=== PATIENT | male | born 1950 | race Caucasian/White ===

== ENCOUNTER 2019-01-20 09:37 | Emergency (ER) | payer MEDICARE ==
--- NOTE | 2019-01-20 10:00 | Emergency Department Record ---
History of Present Illness - General Chief complaint: Lower Extremity Pain Stated complaint: LOWER RIGHT LEG PAIN Time Seen by Provider: 01/20/19 09:50 Source: Patient, RN notes reviewed Mode of Arrival: Ambulatory - History of Present Illness Initial comments: right anterior lower leg pain and redness and no trauma. pulses are good and the skin is tender to touch. Onset/Timin -: Week(s) Location: Right, Lower Leg History of Same: No Radiation: None Severity scale (1-10): 1 Quality: Other Consistency: Intermittent Improves with: Immobilization Worsens with: Exertion, Walking, Weight bearing Associated Symptoms: Denies other symptoms - Related Data Home Medications Medication Instructions Recorded Confirmed Last Taken Simvastatin 40 mg PO DAILY 01/20/19 01/20/19 Unknown Previous Rx's Medication Instructions Recorded Amoxicillin/Potassium Clav 1 tab PO BID #20 tab 01/20/19 [Augmentin 875-125 Tablet] Allergies Allergy/AdvReac Type Severity Reaction Status Date / Time No Known Drug Allergies Allergy Verified 01/20/19 09:45 Travel Screening - Travel/Exposure Within Last 30 Days Have you traveled within the last 30 days?: No Review of Systems Reviewed: No additional complaints except as noted below Constitutional: Reports: As per HPI. Denies: Chills, Fever, Malaise, Night sweats, Weakness, Weight change Eyes: Reports: As per HPI. Denies: Eye discharge, Eye pain, Photophobia, Vision change ENT: Reports: As per HPI. Denies: Congestion, Dental pain, Ear pain, Epistaxis, Hearing loss, Throat pain Respiratory: Reports: As per HPI. Denies: Cough, Dyspnea, Hemoptysis, Stridor, Wheezes Cardiovascular: Reports: As per HPI. Denies: Arrhythmia, Chest pain, Dyspnea on exertion, Edema, Murmurs, Orthopnea, Palpitations, Paroxysmal nocturnal dyspnea, Rheumatic Fever, Syncope Endocrine: Reports: As per HPI. Denies: Fatigue, Heat or cold intolerance, Polydipsia, Polyuria Gastrointestinal: Reports: As per HPI. Denies: Abdominal pain, Constipation, Diarrhea, Hematemesis, Hematochezia, Melena, Nausea, Vomiting Genitourinary: Reports: As per HPI. Denies: Dysuria, Frequency, Hematuria, Incontinence, Retention, Testicular pain, Testicular mass, Urgency Musculoskeletal: Reports: As per HPI. Denies: Arthralgia, Back pain, Gout, Joint swelling, Myalgia, Neck pain Skin: Reports: As per HPI, Rash. Denies: Bruising, Change in color, Change in hair/nails, Lesions, Pruritus Neurological: Reports: As per HPI. Denies: Abnormal gait, Confusion, Headache, Numbness, Paresthesias, Seizure, Tingling, Tremors, Vertigo, Weakness Psychiatric: Reports: As per HPI. Denies: Anxiety, Auditory hallucinations, Depression, Homicidal thoughts, Suicidal thoughts, Visual hallucinations Hematological/Lymphatic: Reports: As per HPI. Denies: Anemia, Blood Clots, Easy bleeding, Easy bruising, Swollen glands Past Medical History - SOCIAL HISTORY Smoking Status: Never smoker Alcohol Use: None Drug Use: None - RESPIRATORY Hx Respiratory Disorders: No - CARDIOVASCULAR Hx Cardio Disorders: Yes Hx Hypertension: Yes - NEURO Hx Neuro Disorders: No - GI Hx GI Disorders: No - Hx Genitourinary Disorders: No - ENDOCRINE Hx Endocrine Disorders: No - MUSCULOSKELETAL Hx Musculoskeletal Disorders: No - PSYCH Hx Psych Problems: No - HEMATOLOGY/ONCOLOGY Hx Hematology/Oncology Disorders: No Family Medical History Any Significant Family History?: No Physical Exam - General General Appearance: Alert, Oriented x3, Cooperative, No acute distress - Head Head exam: Normal inspection - Eye Eye exam: Normal appearance, PERRL Pupils: Normal accommodation - ENT ENT exam: Normal exam, Mucous membranes moist, Normal external ear exam, Normal orophraynx, TM's normal bilaterally Ear exam: Normal external inspection. negative: External canal tenderness Nasal Exam: Normal inspection. negative: Discharge, Sinus tenderness Mouth exam: Normal external inspection, Tongue normal Teeth exam: Normal inspection. negative: Dental caries Throat exam: Normal inspection. negative: Tonsillar erythema, Tonsillar exudate - Neck Neck exam: Normal inspection, Full ROM. negative: Tenderness - Respiratory Respiratory exam: Normal lung sounds bilaterally. negative: Respiratory distress - Cardiovascular Cardiovascular Exam: Regular rate, Normal rhythm, Normal heart sounds - GI/Abdominal GI/Abdominal exam: Soft, Normal bowel sounds. negative: Tenderness - Rectal Rectal exam: Deferred - exam: Deferred - Extremities Extremities exam: Normal inspection, Full ROM, Normal capillary refill. negative: Tenderness - Back Back exam: Reports: Normal inspection, Full ROM. Denies: Muscle spasm, Rash noted, Tenderness - Neurological Neurological exam: Alert, Normal gait, Oriented X3, Reflexes normal - Psychiatric Psychiatric exam: Normal affect, Normal mood - Skin Skin exam: Dry, Intact, Normal color, Warm Course Vital Signs 01/20/19 09:39 Temperature 97.9 F Pulse Rate 64 Respiratory 20 Rate Blood Pressure 159/103 Pulse Ox 98 Medical Decision Making - Lab Data Result diagrams: 01/20/19 10:25 Disposition Clinical Impression: Cellulitis of leg, right, Elevated uric acid in blood Disposition: Home, Self-Care Condition: (1) Good Instructions: Cellulitis (ED) Additional Instructions: follow up with family uric acid slightly elevated use motrin 400 mg three times a day Prescriptions: Amoxicillin/Potassium Clav [Augmentin 875-125 Tablet] 1 tab PO BID #20 tab Forms: Patient Portal Access Time of Disposition: 12:51 Quality - Quality Measures Quality Measures: N/A - Blood Pressure Screening Does Patient Have Any of the Following: No Blood Pressure Classification: Hypertensive Reading Systolic Measurement: 159 Diastolic Measurement: 103 Screening for High Blood Pressure: < Pre-Hypertensive BP, F/U Documented > [G8950] Pre-Hypertensive Follow-up Interventions: Referral to alternative/primary care provider.
[2019-01-20 10:31] LABS: ABSOLUTE NEUTROPHIL COUNT 3.09; EOS % 6.1 % (0-6); GRAN % 60.3 % (47-80); HEMATOCRIT 41.3 % (42.0-52.0); HEMOGLOBIN 13.3 gm/dl (14.0-18.0); LYMPH % 24.8 % (16-45); MEAN CELL VOLUME 91.8 fl (81-97); MEAN CORPUSCULAR HGB CONC 32.2 g/dl (32-36); MEAN PLATELET VOLUME 10.2 fl (7.4-10.4); MONO % 7.8 % (0-9); PLATELET COUNT 250 K/uL (130-400); RED CELL DISTRIBUTION WIDTH 13.3 % (11.5-14.5); WHITE BLOOD COUNT W/O DIFF 5.1 K/uL (4.2-12.2)
[2019-01-20 10:33] LABS: MEAN CORPUSCULAR HEMOGLOBIN 29.5 pg (27-33)
[2019-01-20 10:53] LABS: C-REACTIVE PROTEIN 0.2 mg/dL (<0.5)
--- NOTE | 2019-01-20 12:27 | ULTRASOUND REPORT ---
EXAMINATION: Right Lower Extremity Venous Duplex Doppler Ultrasound EXAM DATE: 01/20/2019 11:46 AM TECHNIQUE: Real-time B-mode imaging with and without compression was used to evaluate the right lowe r extremity for deep venous thrombosis (DVT). Duplex Doppler with color and spectral Doppler was use d. INDICATION: right lower leg pain COMPARISON: None FINDINGS: Right Common Femoral Vein: No DVT. Right Femoral Vein: No DVT. Right Popliteal Vein: No DVT. Right Proximal Deep Femoral Vein: No DVT. Right Posterior Tibial Veins: No DVT. Right Peroneal Veins: No DVT. Right proximal Great Saphenous Vein: No thrombus. Duplex Doppler: Spectral Doppler waveforms show normal respiratory phasicity in the common femoral vein. Additional Findings: None. IMPRESSION: There is no deep venous thrombosis in the visualized deep veins of the right lower extremity. Dictated by: Berlin Camargo MD on 01/20/2019 12:26 PM. .
== END 2019-01-20 13:06 | disposition home or self-care (01) ==
LOC: ER 09:37
DX: L03.115 Cellulitis of right lower limb (principal); I10 Essential (primary) hypertension; M79.661 Pain in right lower leg; E79.0 Hyperuricemia without signs of inflammatory arthritis and tophaceous disease
CPT/HCPCS: 84550; 85025; 86140; 99284

== ENCOUNTER 2019-04-11 23:25 | Emergency (ER) | payer MEDICARE ==
--- NOTE | 2019-04-11 23:28 | Emergency Department Record ---
History of Present Illness - General Chief complaint: Extremity Problem Stated complaint: FINGER INJURY Time Seen by Provider: 04/11/19 23:26 Source: Patient Mode of Arrival: Ambulatory Limitations: No limitations - History of Present Illness Initial comments: 68 yo male presents after a crush injury to the left middle finger. The injury occurred at 1pm. 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 He was moving wood blocks that were used to hold up the machine and his left middle finger was pinched between blocks. The tip was injured. The nail is intact, the skin is intact. He has distal pain and swelling. His last tetanus shot was within the last 5 years. He declined pain medication. His pain is controlled currently. MD Complaint: Other (Finger) -: Hour(s) Location: Left History of Same: Yes -: Yes Arthralgia Radiation: Distal Quality: Aching Consistency: Constant Improves with: Nothing Worsens with: Nothing Associated Symptoms: Denies other symptoms - Related Data Allergies Allergy/AdvReac Type Severity Reaction Status Date / Time No Known Drug Allergies Allergy Verified 01/20/19 09:45 Review of Systems Constitutional: Denies: Chills, Fever, Malaise, Weakness Eyes: Denies: Eye discharge ENT: Denies: Congestion Respiratory: Denies: Cough Cardiovascular: Denies: Chest pain, Edema Endocrine: Denies: Fatigue Gastrointestinal: Denies: Abdominal pain, Diarrhea, Nausea, Vomiting Genitourinary: Denies: Dysuria, Frequency, Hematuria Musculoskeletal: Reports: As per HPI, Other. Denies: Myalgia Skin: Reports: As per HPI, Other. Denies: Bruising, Change in color Neurological: Denies: Confusion, Numbness, Paresthesias, Vertigo, Weakness Psychiatric: Denies: Anxiety Hematological/Lymphatic: Denies: Blood Clots, Easy bleeding, Easy bruising Past Medical History - SOCIAL HISTORY Smoking Status: Never smoker Drug Use: None - RESPIRATORY Hx Respiratory Disorders: No - CARDIOVASCULAR Hx Cardio Disorders: Yes Hx Hypertension: Yes - NEURO Hx Neuro Disorders: No - GI Hx GI Disorders: No - Hx Genitourinary Disorders: No - ENDOCRINE Hx Endocrine Disorders: No - MUSCULOSKELETAL Hx Musculoskeletal Disorders: No - PSYCH Hx Psych Problems: No - HEMATOLOGY/ONCOLOGY Hx Hematology/Oncology Disorders: No Physical Exam - General General Appearance: Alert, Oriented x3, Cooperative, No acute distress Limitations: No limitations - Head Head exam: Atraumatic, Normal inspection - ENT ENT exam: Normal exam Ear exam: Normal external inspection Nasal Exam: Normal inspection Mouth exam: Normal external inspection - Neck Neck exam: Normal inspection - Cardiovascular Peripheral Pulses: 2+: Radial (L) - Rectal Rectal exam: Deferred - exam: Deferred - Extremities Extremities exam: Joint swelling, Normal capillary refill, Tenderness. negativ e: Normal inspection Image of Hand: 1 - distal swelling with bruising. Less than 25% subungual hematoma, nail is firmly intact, no gross deformity, DIP with good ROM, PIP is non tender and not involved - Neurological Neurological exam: Alert, Oriented X3. negative: Motor sensory deficit - Psychiatric Psychiatric exam: Normal affect, Normal mood - Skin Skin exam: Other (bruising) Course - Reevaluation(s) Reevaluation #1: 04/11/19 23:43 Tetanus is up to date Neurovascular intact XR ordered He declined pain medication 04/11/19 23:45 You may take Tylenol as directed for pain 04/12/19 00:01 XR was reviewed. Distal phalanx comminuted fracture. The patient was instructed on his injury, home care and follow up as needed He was splinted prior to discharge. Disposition Disposition: Discharge Clinical Impression: Finger contusion Qualifiers: Encounter type: initial encounter Finger: middle finger Damage to nail status: without damage Laterality: left Qualified Code(s): S60.032A - Contusion of left middle finger without damage to nail, initial encounter Phalanx, distal fracture of finger Qualifiers: Encounter type: initial encounter Finger: middle finger Disposition: Home, Self-Care Condition: (1) Good Instructions: Finger Fracture (ED) Additional Instructions: Protect the finger while working with the splints provided See you doctor or return if you have any concerns with the healing of the finger. Forms: Patient Portal Access Time of Disposition: 23:59 Quality - Quality Measures Quality Measures: N/A - Blood Pressure Screening Does Patient Have Any of the Following: Active Dx of HTN Blood Pressure Classification: Hypertensive Reading Systolic Measurement: 179 Diastolic Measurement: 95 Screening for High Blood Pressure: Patient Exclusion, Hx of HTN [X4723]
--- NOTE | 2019-04-12 | RADIOLOGY REPORT ---
EXAMINATION: Left Thumb, Minimum Two Views EXAM DATE: 04/11/2019 11:47 PM TECHNIQUE: PA, lateral, and oblique views INDICATION: crushed injury middle finger COMPARISON: None ENCOUNTER: Initial FINDINGS: Acute comminuted fractures of the 3rd distal phalanx tuft. Fixation plate and screws within the 3rd p roximal phalanx. No joint spaces are preserved. IMPRESSION: Acute fracture of the 3rd distal phalanx tuft. Dictated by: Abdiel Lima MD on 04/11/2019 11:57 PM. .
== END 2019-04-12 00:10 | disposition home or self-care (01) ==
LOC: ER 23:25
DX: S62.525A Nondisplaced fracture of distal phalanx of left thumb, initial encounter for closed fracture (principal); W22.8XXA Striking against or struck by other objects, initial encounter; I10 Essential (primary) hypertension
CPT/HCPCS: 73140; 99283